=== PATIENT | male | born 1990 | race Caucasian/White ===

== ENCOUNTER 2022-02-05 11:20 | Emergency (ER) | payer OTHER ==
[~2022-02-05] VITALS: Ht 180.3 cm; Wt 100.0 kg
[2022-02-05 11:30] VITALS: BP 135/84
--- NOTE | 2022-02-05 13:34 | RAD ---
EXAM: Right knee, 3 views. HISTORY: Pain. COMPARISON: None. FINDINGS: 3 views of right knee are obtained. There is no fracture, dislocation or subluxation. There is a small to moderate joint effusion. There is a bone island within the proximal tibia. IMPRESSION: Small to moderate joint effusion. No acute osseous finding. Electronically signed by: Carine Espitia MD (02/05/2022 1:32 PM) [id number]
--- NOTE | 2022-02-05 14:41 | PHYS DOC ---
Past Medical History Additional Past Medical Histor: INSOMIA Past Surgical History: No Surgical History General Adult EDM: Chief Complaint: KNEE INJURY HPI: HPI: Patient is a 31-year-old male who presents today with right knee pain and bilateral foot rash. Patient states approximately 10 days ago at his place of employment they required him to get steel toed boots, he said that they provided him with boots but they were not fitted appropriately and he was having a hard time wearing them due to increased foot pain and knee pain. Patient states he went and saw his primary care physician and was given some pills for the rash on his feet as well has some Ultram and diclofenac for pain in his knee. Patient states that he returned to work today and only worked approximately 3 hours and had increased pain in his right knee and came here to the emergency department for further evaluation and management of this. Patient states he is still having the rash in between his toes, and he says they are swollen and they hurt. Patient denies any trauma to his knee he states that it is all happened due to walking and steel toed and working in steel toed boots. Review of Systems: Review of Systems: Constitutional: Denies fever or chills. [] Eyes: Denies change in visual acuity. [] HENT: Denies nasal congestion or sore throat. [] Respiratory: Denies cough or shortness of breath. [] Cardiovascular: Denies chest pain or edema. [] GI: Denies abdominal pain, nausea, vomiting, bloody stools or diarrhea. [] : Denies dysuria. [] Musculoskeletal: Right knee pain Integument: Rash to bilateral feet Neurologic: Denies headache, focal weakness or sensory changes. [] Endocrine: Denies polyuria or polydipsia. [] Lymphatic: Denies swollen glands. [] Psychiatric: Denies depression or anxiety. [] Heart Score: C/O Chest Pain: No Risk Factors: Risk Factors: DM, Current or recent (<one month) smoker, HTN, HLP, family history of CAD, obesity. Risk Scores: Score 0 - 3: 2.5% MACE over next 6 weeks - Discharge Home Score 4 - 6: 20.3% MACE over next 6 weeks - Admit for Clinical Observation Score 7 - 10: 72.7% MACE over next 6 weeks - Early Invasive Strategies Allergies: Allergies: Allergies Coded Allergies Type Severity Reaction Last Updated Verified No Known Drug Allergies 02/05/22 No Physical Exam: PE: Constitutional: Well developed, well nourished, no acute distress, non-toxic appearance. [] HENT: Normocephalic, atraumatic, bilateral external ears normal, oropharynx moist, no oral exudates, nose normal. [] Eyes: PERRLA, EOMI, conjunctiva normal, no discharge. [] Neck: Normal range of motion, no tenderness, supple, no stridor. [] Cardiovascular:Heart rate regular rhythm, no murmur [] Lungs & Thorax: Bilateral breath sounds clear to auscultation [] Abdomen: Bowel sounds normal, soft, no tenderness, no masses, no pulsatile masses. [] Skin: Bilateral feet interdigital pruritic erythemic erosion noted in between all the toes, skin was peeling. No drainage noted. Back: No tenderness, no CVA tenderness. [] Extremities: Right knee is swollen no erythema or redness noted, tenderness located all along the joint line, knee stability was assessed and was stable, no popping or crepitus with range of motion, range of motion is limited due to pain and swelling, neurovascular is intact distal to the pain, patient is able to ambulate but with great difficulty due to pain. Dorsalis pedis pulses are 2+ cap refills less than 2 seconds and sensory is intact distal to the pain Neurologic: Alert and oriented X 3, normal motor function, normal sensory function, no focal deficits noted. [] Psychologic: Affect normal, judgement normal, mood normal. [] Current Patient Data: Vital Signs: Vital Signs Date Time Temp Pulse Resp B/P (MAP) Pulse Ox O2 Delivery O2 Flow Rate FiO2 02/05/22 11:30 97.8 102 18 135/84 (101) 99 Room Air 97.8 EKG: EKG: [] Radiology/Procedures: Radiology/Procedures: REASON: knee pain for 2 weeks,denies injury or trauma, states pain from standing PROCEDURE: KNEE RIGHT 4V EXAM: Right knee, 3 views. HISTORY: Pain. COMPARISON: None. FINDINGS: 3 views of right knee are obtained. There is no fracture, dislocation or subluxation. There is a small to moderate joint effusion. There is a bone island within the proximal tibia. IMPRESSION: Small to moderate joint effusion. No acute osseous finding. Electronically signed by: Carine Espitia MD (02/05/2022 1:32 PM) [id number] [] Course & Med Decision Making: Course & Med Decision Making Pertinent Labs and Imaging studies reviewed. (See chart for details) [id number] I reviewed radiological results with patient I did inform him that indeed he does have an effusion in his right knee which would indicate that he has a meniscus or ligamental injury, he will need to follow-up with his primary care physician for further evaluation and management of this, we will place the patient in an Jagdeep wrap as well as provide a set of crutches for him to weight- bear as tolerated. Patient has pain medications at home that he can take for this and he is encouraged to take those, he is also advised to ice 20 minutes on 3-4 times daily as well as elevate while sitting in a chair. In regards to his feet he has athlete's foot, patient is instructed to clean his shower completely using bleach, he will need to use [id number] Lotrimin as labeled directed to his toes making sure that he washes them on a daily basis as well as keeps them clean and dry, he will also need to make sure that after his shower his feet are completely dry before he places any Lotrimin on his feet. It is recommended that you use synthetic fiber socks to help prevent athlete's foot due to them being able to remove moisture away from your toes and feet. Raquel Disclaimer: Raquel Disclaimer: This electronic medical record was generated, in whole or in part, using a voice recognition dictation system. Departure Departure Impression: Primary Impression: Knee effusion, right Additional Impression: Tinea pedis of both feet Referrals: ALBERTO KAYE APRN (PCP) Patient Instructions: Athlete's Foot, Crutch Use, Knee Effusion, Knee Wraps (Elastic Bandage) and RICE Additional Instructions: Continue with tramadol and diclofenac as needed for pain Jagdeep wrap to help provide support Ice and elevate 20 minutes on 3-4 times daily to help with localized pain relief and swelling Weight-bear as tolerated use her crutches to help with ambulation Follow-up with your primary care physician or with orthopedic doctor listed in the referral section for further evaluation and management of your knee pain. Lotrimin [id number] cream apply twice daily to clean and dry feet for the next 4 weeks, wear synthetic socks to help control the moisture in your feet. KIRK LANGFORD APRN February 05, 2022 14:41
== END 2022-02-05 15:16 | disposition home or self-care (01) ==
LOC: ER 11:20
DX: M25.461 Effusion, right knee (principal); B35.3 Tinea pedis
CPT/HCPCS: 73564; 99283